=== PATIENT | female | born 1985 | race Asian ===

== ENCOUNTER 2018-09-18 12:04 | Emergency (ER) | payer MEDICAID ==
[~2018-09-18] VITALS: Ht 162.6 cm; Wt 73.8 kg
[~2018-09-18 12:04] MED LIST: LORA10TA7 PO
[2018-09-18 12:20] VITALS: BP 97/60
[2018-09-18] MEDS ORDERED: TRAM50TA2 PO (13:05)
[2018-09-18 13:27] LABS: URINE HCG NEGATIVE (NEG)
== END 2018-09-18 14:39 | disposition home or self-care (01) ==
LOC: ER 12:05
DX: S39.92XA Unspecified injury of lower back, initial encounter (principal); M25.512 Pain in left shoulder; M25.561 Pain in right knee; Z79.899 Other long term (current) drug therapy; V47.5XXA Car driver injured in collision with fixed or stationary object in traffic accident, initial encounter; Y93.89 Activity, other specified; Y92.89 Other specified places as the place of occurrence of the external cause; Y99.8 Other external cause status
CPT/HCPCS: 71045; 72100; 81025; 99284